=== PATIENT | male | born 1975 | race Caucasian/White ===

== ENCOUNTER 2016-09-11 11:24 | Emergency (ER) | payer BC ==
[2016-09-11 11:34] VITALS: BP 113/72
--- NOTE | 2016-09-11 12:54 | RAD ---
HISTORY: Pain and swelling left anterior neck COMPARISONS: July 01, 2004 VIEWS: 3, Frontal, lateral, open-mouth odontoid, and bilateral oblique views of the cervical spine. FINDINGS: The cervical spine is visualized from the skull base through T1. ALIGNMENT: There is straightening of the normal cervical lordosis. VERTEBRAL BODIES: The odontoid process is intact. The atlantoaxial intervals are symmetric. There is anterolateral marginal osteophyte formation at C4-C5 and C6-C7. JOINTS: There is no subluxation or dislocation. The facet joints are unremarkable. INTERVERTEBRAL DISCS: There is diffuse loss of intervertebral disc height. SOFT TISSUE: The prevertebral soft tissues are normal. OTHER: The skull base is normal. The lung apices are clear. IMPRESSION: MILD DEGENERATIVE DISC DISEASE, MOST PRONOUNCED AT C4-C5 AND C6-C7 , WITH PROGRESSION COMPARED TO 2005
[2016-09-11 18:36] LABS: Hematocrit 42 % (42-52); Hemoglobin 14.3 g/dl (14.0-18.0); Mean Corpuscular HGB Conc 34 g/dl (31-36); Mean Corpuscular Hemoglobin 30 pg (27-31); Mean Corpuscular Volume 89 fL (80-94); Mean Platelet Volume 9 um3 (7.4-10.4); Red Blood Count 4.74 10^6/ul (4.0-5.4); Red Cell Distribution Width 13 % (10.5-15); White Blood Count 7.3 10^3/ul (3.5-10.8)
[2016-09-11 20:17] LABS: Erythrocyte Sed Rate 5 mm/Hr (0-14)
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
== END 2016-09-11 13:18 | disposition home or self-care (01) ==
LOC: UCEAST 11:24
DX: M54.2 Cervicalgia (principal); R59.9 Enlarged lymph nodes, unspecified; M50.321 Other cervical disc degeneration at C4-C5 level; M50.323 Other cervical disc degeneration at C6-C7 level; J45.909 Unspecified asthma, uncomplicated; Z87.891 Personal history of nicotine dependence
CPT/HCPCS: 36415; 72040; 85025; 85652; 86140; 99211; G0463

== ENCOUNTER 2017-01-30 16:52 | Emergency (ER) | payer BC ==
[2017-01-30 22:05] LABS: Urine Bacteria Absent (Absent); Urine Bilirubin Negative (Negative); Urine Glucose Negative (Negative); Urine Nitrite Negative (Negative)
[2017-01-30] MEDS ORDERED: Ciprofloxacin TAB* 500 MG PO ONE ×2 (22:10→22:11)
[2017-01-30 22:15] VITALS: BP 133/83
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
== END 2017-01-30 22:23 | disposition home or self-care (01) ==
LOC: ED 16:52
DX: N39.0 Urinary tract infection, site not specified (principal); Z87.891 Personal history of nicotine dependence
CPT/HCPCS: 81003; 81015; 99283; A9270-GY

== ENCOUNTER 2017-03-06 08:19 | Emergency (ER) | payer BC ==
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
--- NOTE | 2017-03-06 10:33 | RAD ---
HISTORY: Recurrent UTI COMPARISONS: None TECHNIQUE: Multiple transverse and longitudinal ultrasound images were obtained of the kidneys and bladder using grayscale and color Doppler imaging. FINDINGS: RIGHT KIDNEY: The right kidney is normal in shape, size, contour, and echogenicity. There is no hydronephrosis or nephrolithiasis. The right kidney measures 10.6 x 4.6 x 5.8 cm. LEFT KIDNEY: The left kidney is normal in shape, size, contour, and echogenicity. There is no hydronephrosis or nephrolithiasis. The left kidney measures 11.1 x 3.9 x 4.2 cm. BLADDER: The bladder is smooth in contour. Bilateral ureteral jets are identified. AORTA AND IVC: No images are submitted of the vasculature. RETROPERITONEUM: Unremarkable. OTHER: None. IMPRESSION: NO HYDRONEPHROSIS OR NEPHROLITHIASIS
[2017-03-06 10:46] VITALS: BP 134/75
--- NOTE | 2017-03-06 10:55 | RAD ---
INDICATION: Painless hematuria history of testicular mass and urinary tract infection. COMPARISON: There are no prior studies available for comparison. TECHNIQUE: Multiple real-time images of the testicles were obtained including color Doppler images and Doppler tracings. FINDINGS: The testicles are normal in size, shape and echogenicity. The right testicle measured 4.7 x 2.7 x 3.1 cm and the left testicle measured 4.1 x 2.3 x 3.0 cm. No intratesticular mass is seen. There is vascular flow within both testicles. The epididymides appear to be within normal limits. There are trace bilateral hydroceles. IMPRESSION: NEGATIVE EXAM.
== END 2017-03-06 11:26 | disposition home or self-care (01) ==
LOC: UCEAST 08:19
DX: N39.0 Urinary tract infection, site not specified (principal); Z72.89 Other problems related to lifestyle; Z87.891 Personal history of nicotine dependence
CPT/HCPCS: 76775; 76870; 81003; 87086; 99212; G0463

== ENCOUNTER 2017-03-24 01:47 | Emergency (ER) | payer BC ==
[2017-03-24] MEDS ORDERED: Metoclopramide IV* 5 MG/ML 2 ML VIAL IV ONE (02:07)
[2017-03-24] MEDS ORDERED: Morphine INJ* 4 MG/ML 1 ML CARPUJECT IV ONE (02:07)
[2017-03-24] MEDS ORDERED: NS 0.9% 1000 ML* 1,000 ML IV ONE (02:09)
[2017-03-24 02:43] LABS: ABS Basophils 0 10^3/ul (0-0.2); ABS Eosinophils 0.3 10^3/ul (0-0.6); ABS Lymphocytes 2.6 10^3/ul (1.0-4.8); ABS Monocytes 0.7 10^3/ul (0-0.8); ABS Nucleated RBC 0 10^3/ul; Eosinophil % 4.1 % (0-6); Hematocrit 41 % (42-52); Hemoglobin 14.1 g/dl (14.0-18.0); Lymphocyte % 33.7 % (25-47); Mean Corpuscular HGB Conc 34 g/dl (31-36); Mean Corpuscular Hemoglobin 30 pg (27-31); Mean Corpuscular Volume 87 fL (80-94); Mean Platelet Volume 7 um3 (7.4-10.4); Nucleated Red Blood Cells % 0.1; Platelet Count 254 10^3/ul (150-450); Red Blood Count 4.76 10^6/ul (4.0-5.4); Red Cell Distribution Width 13 % (10.5-15); White Blood Count 7.7 10^3/ul (3.5-10.8)
[2017-03-24 02:56] LABS: EGFR Non-African American 61.4 (>60)
[2017-03-24 02:58] LABS: INR 0.83 (0.77-1.02)
[2017-03-24] MEDS ORDERED: Iohexol 300* (CONTRAST) 10 ML SDV IV ONE (03:40)
[2017-03-24] MEDS ORDERED: Tamsulosin CAP* 0.4 MG PO ONE (05:23)
[2017-03-24 06:03] LABS: Urine Appearance Clear; Urine Blood 3+ (Negative); Urine Color Yellow; Urine Ketones Negative (Negative); Urine Protein Negative (Negative); Urine Specific Gravity 1.058 (1.010-1.030); Urine Urobilinogen Negative (Negative)
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
[2017-03-24 06:24] VITALS: BP 145/74
--- NOTE | 2017-03-24 07:59 | RAD ---
CLINICAL HISTORY: Left lower quadrant pain, abdominal pain COMPARISON: Chest x-ray dated February 12, 2015 TECHNIQUE: Multiple contiguous axial CT scans were obtained of the abdomen and pelvis after the administration of intravenous contrast. Coronal and sagittal multiplanar reformations are submitted for review. Oral contrast was administered. Delayed images were obtained through the abdomen and pelvis. FINDINGS: LUNG BASES: There is a calcified granuloma of the right lower lobe. This can be identified in retrospect on the previous plain film examination and appear stable accounting for differences in technique. LIVER: There is mild periportal edema. The liver measures 20 cm). BILE DUCTS: There is no intrahepatic or extrahepatic biliary dilatation. GALLBLADDER: The gallbladder is normal, without pericholecystic inflammatory change. PANCREAS: The pancreas is normal, without mass or ductal dilatation. SPLEEN: Normal in size and appearance. UPPER GI TRACT: Evaluation of the gastrointestinal tract is limited by incomplete gastric distention. The upper GI tract is unremarkable. SMALL BOWEL AND MESENTERY: The small bowel is normal in contour, course, and caliber. There is no obstruction or dilatation. There is some spiraling of the small bowel mesentery which is likely incidental in the absence of obstruction or clinical signs of torsion COLON: There are scattered diverticula of the distal colon. ADRENALS: Normal bilaterally. KIDNEYS: There is a 0.7 cm calculus of the mid left ureter. There is moderate pelviectasis and hydroureter. There is punctate left renal calyceal stone. BLADDER: There is mild circumferential bladder wall thickening. PELVIC ORGANS: The prostate gland is normal. The seminal vesicles are symmetric. AORTA: The aorta is normal. IVC: Unremarkable LYMPH NODES: There is no lymphadenopathy by size criteria. ABDOMINAL WALL: There is no evidence for abdominal wall hernia. BONES AND SOFT TISSUES: There are mild diffuse degenerative changes. OTHER: Surgical clips are noted in the left midabdomen. IMPRESSION: 1. LEFT NEPHROLITHIASIS, INCLUDING A 0.7 CM LEFT MID URETERAL STONE WITH MILD TO MODERATE HYDRONEPHROSIS. 2. HEPATOMEGALY WITH MILD PERIPORTAL EDEMA. 3. SCATTERED DIVERTICULA OF THE DISTAL COLON. 4. MILD CIRCUMFERENTIAL BLADDER WALL THICKENING. THIS MAY BE AN ARTIFACT OF INCOMPLETE DISTENTION.
== END 2017-03-24 06:22 | disposition home or self-care (01) ==
LOC: ED 01:47
DX: N13.30 Unspecified hydronephrosis (principal); N23 Unspecified renal colic; R10.32 Left lower quadrant pain; R11.0 Nausea; Z87.891 Personal history of nicotine dependence
CPT/HCPCS: 36415; 74177; 80053; 81003; 81015; 82150; 83690; 85025; 85610; 85730; 86140; 96374; 96375; 99282; J2270; J2765; Q9967

== ENCOUNTER 2017-04-01 09:44 | Day surgery (SDC) | payer BC ==
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
[~2017-04-01 09:44] MED LIST: Buffered Lidocaine 0.9% SYRIN* 5 ML/SYR SYRINGE INTRADERM ONE; Dexamethasone IV* 4 MG/ML 1 ML (4 MG) IV SLOW PU ONE; Famotidine IV* 10 MG/ML 2 ML (20 mg) IV ONE
[2017-04-01] MEDS ORDERED: cefTRIAXone(*) 2 GM ADDV.VIAL IVPB ONE (09:51)
[2017-04-01] MEDS ORDERED: Famotidine IV* 10 MG/ML 2 ML (20 mg) ONE (09:51)
[2017-04-01] MEDS ORDERED: Dexamethasone IV* 4 MG/ML 1 ML (4 MG) ONE (09:51)
[2017-04-01] MEDS ORDERED: Midazolam* 1 MG/ML 10 ML VIAL (10 MG) ONE (11:41)
[2017-04-01] MEDS ORDERED: Propofol* 10 MG/ML 20 ML BTL IV PUSH ONE (11:41)
[2017-04-01] MEDS ORDERED: fentaNYL* 50 MCG/ML 5 ML VIAL (250 MCG VIAL) ONE (11:41)
[2017-04-01] MEDS ORDERED: Ondansetron INJ* 2 MG/ML VIAL ONE (11:41)
[2017-04-01] MEDS ORDERED: Glycopyrrolate IV* 0.2 MG/ML 1 ML VIAL ONE (12:15)
[2017-04-01] MEDS ORDERED: Lidocaine 2% PF * 5 ML VIAL ONE (12:16)
--- NOTE | 2017-04-01 12:26 | RAD ---
INDICATION: Shock wave lithotripsy COMPARISON: March 25, 2017 TECHNIQUE: A single view of the abdomen is submitted. FINDINGS: Bones: There are no acute bony findings. Soft tissues: The soft tissues appear normal. The psoas margins are sharp. Bowel gas pattern: Normal Calcifications: Presumed fragmentation of the left ureteral calculus. Multiple abhijit in the minor pelvis. Other: None IMPRESSION: PRESUMED FRAGMENTATION LEFT URETERAL CALCULUS
[2017-04-01] MEDS ORDERED: diPHENhydraMINE IV* 50 MG/ML 1 ml VIAL (BENADRYL) IV PRN (12:30)
[2017-04-01] MEDS ORDERED: Ondansetron INJ* 2 MG/ML VIAL IV PRN (12:30)
[2017-04-01] MEDS ORDERED: oxyCODONE/Acetamin 5/325 MG* TAB PO PRN (12:30)
[2017-04-01] MEDS ORDERED: Naloxone* 0.4 MG/ML 1 ML VIAL IV PRN (12:30)
[2017-04-01] MEDS ORDERED: fentaNYL* 50 MCG/ML 2 ML VIAL (100 MCG VIAL) IV PRN (12:30)
[2017-04-01] MEDS ORDERED: EPHEDrine (Pressors)* 50 MG/ML VIAL ONE (12:51)
[2017-04-01 13:43] VITALS: BP 143/89
--- NOTE | 2017-04-01 14:07 | RAD ---
INDICATION: Left ESWL COMPARISON: KUB same date TECHNIQUE: A single view of the abdomen is submitted. FINDINGS: Bones: There are no acute bony findings. Soft tissues: The soft tissues appear normal. The psoas margins are sharp. Bowel gas pattern: Normal Calcifications: There are no abnormal calcifications. There are multiple phlebolith in the minor pelvis. Other: There are clips in left upper quadrant pain IMPRESSION: NO RADIOPAQUE CALCULUS IS IDENTIFIED
--- NOTE | 2017-04-02 05:18 | OP ---
CC: Dr. Duncan * DATE OF OPERATION: 04/01/17 - SDS DATE OF : 75 SURGEON: Dmitri Mejia MD ANESTHESIOLOGIST: Dr. Ramires. ANESTHESIA: General. PRE-OP DIAGNOSIS: Calculus, left ureter. POST-OP DIAGNOSIS: Calculus, left ureter. OPERATIVE PROCEDURE: Shockwave lithotripsy of calculus, left ureter. COMPLICATIONS: None. POSTOPERATIVE CONDITION: Stable. INDICATIONS: Bob Paige is a 41-year-old gentleman who has had a persistent calculus in the left proximal to mid ureter and is now being brought in for treatment of the same. DESCRIPTION OF PROCEDURE: After induction of general anesthesia, the patient was placed on the lithotripsy table in supine position. The calculus at the junction of the proximal to mid left ureter was localized using fluoroscopy. Shock-wave lithotripsy was commenced at a rate of 60 shocks per minute. Periodic imaging revealed good localization and fragmentation and a total of 1400 shocks were administered. Because the stone appeared to fragment fairly completely, I did not proceed to place a left stent which I had originally planned to do. The patient tolerated the procedure satisfactorily and was transferred back to the recovery area in stable condition. [id number]/[facility] #: [id number] MTDD
== END 2017-04-01 13:47 | disposition home or self-care (01) ==
LOC: OR 09:44
PROVIDERS: ATTEND Urology
DX: N13.2 Hydronephrosis with renal and ureteral calculous obstruction (principal); Z87.891 Personal history of nicotine dependence; F90.9 Attention-deficit hyperactivity disorder, unspecified type
CPT/HCPCS: 74018; J0696; J1100; J2250; J2405; J2704; J3010

== ENCOUNTER 2017-05-04 10:02 | Emergency (ER) | payer BC ==
[2017-05-04 11:30] VITALS: BP 127/76
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
== END 2017-05-04 11:28 | disposition home or self-care (01) ==
LOC: ED 10:02
DX: M54.5 Low back pain (principal); Z87.891 Personal history of nicotine dependence
CPT/HCPCS: 99282

== ENCOUNTER → 2018-12-03 | Day surgery (SDC) | payer BC ==
[~2018-12-03] MED LIST changes: +Atracurium* 10 MG/ML 10 ML VIAL ONE; -Buffered Lidocaine 0.9% SYRIN* 5 ML/SYR SYRINGE INTRADERM ONE; +Buffered Lidocaine 1% SYRIN* 1 ML/SYRINGE INTRADERM ONE; +Bupivacaine 0.25% EPI 200,000* 30 ML SDV ONE; +Bupivacaine 0.25% W/EPI* 10 ML SDV ONE; +Dexamethasone IV* 4 MG/ML 1 ML (4 MG) ONE; +DiMENhydriNATE IV* 50 MG/ML VIAL IV PUSH PRN; +EPINEPHRINE 1 MG/ML 1 ML VIAL ONE; +Famotidine IV* 10 MG/ML 2 ML (20 mg) ONE; +Glycopyrrolate IV* 0.2 MG/ML 1 ML VIAL ONE; +HYDROmorphone INJ1* 1 MG/ML SYRINGE IV PRN; +Lactated Ringers 1000 ML Bag* 1,000 ML IV SCH; +Midazolam* 1 MG/ML 5 ML VIAL (5 MG) ONE; +Naloxone* 0.4 MG/ML 1 ML VIAL IV PRN; +Neostigmine Methylsulfate* 1 MG/ML 10 ML VIAL (1 mg/ml) ONE; +Ondansetron INJ* 2 MG/ML VIAL IV PRN; +Ondansetron INJ* 2 MG/ML VIAL ONE; +Propofol* 10 MG/ML 20 ML BTL ONE; +ROPIVACAINE 5 MG/ML 30 ML BTL (0.5%) ONE; +ceFAZolin 2 GM in NS PREMIX(*) 2 GM/100 ML BAG IVPB ONE; +fentaNYL* 50 MCG/ML 2 ML VIAL (100 MCG VIAL) IV PRN; +fentaNYL* 50 MCG/ML 2 ML VIAL (100 MCG VIAL) ONE; +oxyCODONE/Acetamin 5/325 MG* TAB ONE; +oxyCODONE/Acetamin 5/325 MG* TAB PO PRN
[2018-12-03 18:23] VITALS: BP 132/97
--- NOTE | 2018-12-04 19:21 | OP ---
OPERATIVE REPORT: DATE OF OPERATION: 12/03/18 DATE OF : 75 SURGEON: Héctor Ojeda MD. SPRINKLING SYSTEM INSTALLER: FRANTZ Kahn. A physician medical administrative assistant was present for the length of the procedure for assistance with patient positioning, retraction, instrumentation and closure. ANESTHESIA: General anesthesia, regional interscalene block anesthesia, local anesthesia using 10 cc of Marcaine 0.25% with epinephrine. PRE-OP DIAGNOSES: 1. Right shoulder glenohumeral joint osteoarthritis. 2. Right shoulder anterior and posterior labrum degeneration versus tearing. 3. Right shoulder loose bodies, intraarticular, with mechanical symptoms. 4. Right shoulder subacromial impingement and bursitis. POST-OP DIAGNOSES: 1. Right shoulder glenohumeral joint osteoarthritis. 2. Right shoulder superior labral tear and anterior and posterior labrum degeneration. 3. Right shoulder loose bodies x2, intraarticular, with mechanical symptoms. 4. Right shoulder subacromial impingement and bursitis. OPERATIVE PROCEDURE: 1. Right shoulder arthroscopic removal of loose bodies x2. 2. Right shoulder arthroscopic subacromial decompression. 3. Right shoulder limited debridement, arthroscopic, of rotator cuff interval, labrum, subacromial bursa. 4. Right shoulder open proximal biceps tenodesis. ANTIBIOTICS: Ancef 2 g IV. IV FLUIDS: See anesthesia note. [id number] TIME: 65 minutes. SPECIMEN: Two loose bodies were sent to Pathology. The patient intends to pick these up from Pathology. IMPLANTS: Arthrex proximal biceps tenodesis button x1. COMPLICATIONS: None. ESTIMATED BLOOD LOSS: Minimal. INDICATIONS FOR PROCEDURE: The patient presented as a referral. The patient had had increasing pain over the last 4 to 5 years and was getting mechanical symptoms of locking of the shoulder and sharp pain. MRI had shown two large loose bodies subacromial. MRI and x-rays showed advanced glenohumeral joint osteoarthritis especially surprising given the patient's younger age. The patient had failed nonoperative management. I told the patient that the glenohumeral joint osteoarthritis itself could not be fixed arthroscopically. I told him that I could not even guarantee removal of the loose bodies if in fact they were loose, they should be or could be removed; however, sometimes they are not actually loose. I have discussed with the patient examining well his biceps and superior labrum intraoperatively as these commonly become pain generators with arthritic shoulders. Also, discussed cleaning out anything subacromial as needed. I had initially thought that the patient might also had some AC joint osteoarthritis, but thereafter it showed that actually the AC joint appeared diastased or widened, which was surprising given the patient's history of no prior surgery, but may speak to a low-grade AC joint separation at one point in time in the distant past. Discussed risks and potential complications and possible recovery timelines postoperatively. DESCRIPTION OF PROCEDURE: In the preoperative holding, the patient signed a written consent. Operative extremity was marked in preoperative holding. The patient underwent a regional interscalene nerve block in preoperative holding by Dr. Ramires. The patient was brought back to the operating room, sedated and intubated. The patient was placed in the lateral decubitus position with the right shoulder up. Axillary roll, bony prominences padded, longitudinal traction 15 pounds, beanbag hardened. Right shoulder was prepped an draped. Formal surgical time-out performed. Shoulder entered from posterior with 30 cc of normal saline. Posterior glenohumeral joint portal established. Started diagnostic arthroscopy. The patient had plenty of room between the humeral head and the glenoid. He did have grade 3 to 4 articular cartilage injury around all of the glenoid. There were some anterior and posterior labrum degeneration, but no significant tears. I made an anterior glenohumeral joint portal under direct visualization. I probed the patient's biceps and superior labrum. Through a superior labrum, a tearing and significant damage to the long head biceps tendon along its length , a clear pain generator. I therefore brought an arthroscopic scissors and cut the biceps near its origin. I next moved to the loose bodies. There were at least two visible adjacent to the supraspinatus tendon. I used an arthroscope shaver to get a feel for whether they were loose and they certainly were both mobile and loose. I brought in a pituitary and I removed 2 large loose bodies that were very mobile. No additional loose bodies were present. I went looking for any further loose bodies both subacromial and in the inferior axillary pouch. Because of this being an arthritic shoulder, we then did a thorough debridement of rotator cuff interval tissue with an arthroscopic shaver. The patient had no undersurface tearing of any of the rotator cuff tendons appreciable. Removed instruments and fluid from the glenohumeral joint and moved to subacromial. Anterior and posterior portals were made. I then made lateral and posterolateral portals. The patient had a significant amount of subacromial bursitis. I debrided this with an arthroscopic shaver. I then visualized the rotator cuff and there was no tearing. I have removed the anterior hook of the acromion using an arthroscopic bur, nicely flattening of the undersurface of the acromion. I next moved to the AC joint. I debrided with cautery and shaver some bursitic tissue in the AC joint. I visualized the AC joint and noted there was a nice gap between clavicle and acromion. I slightly smoothed out the end of the distal clavicle with an arthroscopic bur. I removed the instruments and fluid from subacromial space. Closed skin incisions with [id number] and 12 stitches using nylon 3-0 suture. I took the arm out of traction. I moved the patient to a nearly supine position. I made longitudinal incision through the skin and dissected down to bicipital groove. Placed retractors. Retrieved long head biceps tendon. Placed Beath pin unicortically in the humerus after debriding surface. Placed a FiberLoop stitches x3 in biceps. Loaded button and then placed it, flipped it and tied a knot. Tied another tenodesis knot. I removed excess suture and biceps. Irrigation. Closure of the subcutaneous tissue with buried simple stitches using Vicryl 3-0 suture. Closure of the subcuticular layer with a running stitch using Monocryl 3-0 suture. Mastisol, Steri-Strips, 4x4, Tegaderm. Other skin incisions received Xeroform, 4x4s, ABDs, and foam tape. A sling without abduction pillow applied. The patient was awakened, extubated, and transferred to the PACU. DISPOSITION: Wound care instructions provided. Physical therapy to start immediately. Sling for 2 weeks postoperatively. Percocet for pain control and Keflex for infection prophylaxis. The patient will follow with me 10 to 14 days postoperatively. [id number] #: [id number] MAURICIO
== END | disposition home or self-care (01) ==
LOC: OR 12:57
PROVIDERS: ATTEND Orthopaedic Surgery
DX: M19.011 Primary osteoarthritis, right shoulder (principal); M24.111 Other articular cartilage disorders, right shoulder; M24.011 Loose body in right shoulder; M75.41 Impingement syndrome of right shoulder; M75.51 Bursitis of right shoulder; F90.9 Attention-deficit hyperactivity disorder, unspecified type; J30.2 Other seasonal allergic rhinitis; G89.18 Other acute postprocedural pain
CPT/HCPCS: 88304; 88311; A9270-GY; J0690; J1100; J2250; J2405; J2704; J2710; J2795; J3010